=== PATIENT | male | born 1970 | race African-American/Black ===

== ENCOUNTER 2019-06-17 11:23 | Inpatient (IN) | payer OTHER ==
[2019-06-17 13:26] LABS: Urine Blood NEGATIVE (NEG); Urine Glucose NEGATIVE (NEG); Urine Protein NEGATIVE (NEG); Urine Specific Gravity 1.025 (1.005-1.030)
[2019-06-17] MEDS ORDERED: MORPHINE 4 MG/ML SYR ONE (13:51)
[2019-06-17] MEDS ORDERED: ONDANSETRON 4 MG/2 ML VIAL ONE (13:51)
[2019-06-17] MEDS ORDERED: CIPROFLOXACIN 400mg IV 400 MG/200 ML BAG IV ONE (13:52)
[2019-06-17] MEDS ORDERED: NA CHLORIDE 0.9% 1,000 ML ONE (13:52)
[2019-06-17] MEDS ORDERED: METRONIDAZOLE 500mg IVPB 500 MG/100 ML BAG IV ONE (13:52)
[2019-06-17] MEDS ORDERED: CEFTRIAXONE/SWI 1gm 1 GM/10 ML SYR ONE (13:52)
[2019-06-17 14:33] LABS: Absolute Lymphocytes (CBC) 1.3 K/uL (0.7-4.9); Basophils % 0.5 % (0-1.3); Hematocrit 41.1 % (39.6-49.0); Lymphocytes % 9.6 % (15.3-44.8); RBC Red Blood Cell Count 4.73 M/uL (4.33-5.43)
[2019-06-17 14:38] LABS: Potassium 3.9 mmol/L (3.5-5.1)
--- NOTE | 2019-06-17 14:51 | ER ---
Nurse's Notes [facility] Name: Corry Tapia Age: 48 yrs Sex: Male : 1970 Arrival Date: 06/17/2019 Time: 11:26 Bed 5 Private MD: None, None Diagnosis: Colitis Presentation: 06/17 11:38 Presenting complaint: Patient states: severe L flank pain that began 2 days ago, ss radiates towards LLQ with nausea. Sent from [place] for further evaluation. Transition of care: patient was not received from another setting of care. Onset of symptoms was June 15, 2019. Risk Assessment: Do you want to hurt yourself or someone else? Patient reports no desire to harm self or others. Initial Sepsis Screen: Does the patient meet any 2 criteria? No. Patient's initial sepsis screen is negative. Does the patient have a suspected source of infection? No. Patient's initial sepsis screen is negative. Care prior to arrival: None. 11:38 Method Of Arrival: Ambulatory 11:38 Acuity: MAT 3 ss Historical: - Allergies: 11:40 No Known Allergies; ss - Home Meds: 11:40 None [Active]; ss - PMHx: 11:42 Kidney stones; ss - PSHx: 11:40 None; ss - Immunization history:: Adult Immunizations up to date. - Social history:: Smoking status: Patient/guardian denies using tobacco. - Ebola Screening: : Patient denies exposure to infectious person Patient denies travel to an Ebola-affected area in the 21 days before illness onset. Screenin:00 Abuse screen: Denies threats or abuse. Denies injuries from another. Nutritional jl7 screening: No deficits noted. Tuberculosis screening: No symptoms or risk factors identified. Fall Risk IV access (20 points). Total Harrison Fall Scale indicates No Risk (0-24 pts). Assessment: 13:00 General: Appears in no apparent distress. uncomfortable, ill, Behavior is calm, jl7 cooperative, appropriate for age. Pain: Complains of pain in left upper quadrant Pain radiates to left lower quadrant Pain currently is 8 out of 10 on a pain scale. Quality of pain is described as sharp, Pain began 1 day ago. Is intermittent. Neuro: Level of Consciousness is awake, alert, obeys commands, Oriented to person, place, time, situation. Cardiovascular: Patient's skin is warm and dry. Respiratory: Airway is patent Respiratory effort is even, unlabored, Respiratory pattern is regular, symmetrical. GI: Abdomen is flat, non-distended, Stools are reported to be diarrhea. Last BM at 04:00. Bowel sounds present X 4 quads. Abd is soft X 4 quads Abdomen is tender to palpation in left upper quadrant and left lower quadrant Reports diarrhea, nausea. : No signs and/or symptoms were reported regarding the genitourinary system. EENT: No signs and/or symptoms were reported regarding the EENT system. Derm: Skin is pink, warm \T\ dry. Musculoskeletal: No signs and/or symptoms reported regarding the musculoskeletal system. 14:00 Reassessment: Patient appears in no apparent distress at this time. No changes from jl7 previously documented assessment. Patient and/or family updated on plan of care and expected duration. Pain level reassessed. Patient is alert, oriented x 3, equal unlabored respirations, skin warm/dry/pink. 14:30 Reassessment: Pt reports decreased pain, rated 4/10 at this time. jl7 15:30 Reassessment: Patient appears in no apparent distress at this time. Patient and/or jl7 family updated on plan of care and expected duration. Pain level reassessed. Patient is alert, oriented x 3, equal unlabored respirations, skin warm/dry/pink. 16:10 Reassessment: Pt requesting pain meds, reports pain rated 8/10, Dr. Hardwick gave VO for 2 jl7 mg Morphine x 1. 17:00 Reassessment: Patient appears in no apparent distress at this time. Patient and/or jl7 family updated on plan of care and expected duration. Pain level reassessed. Patient is alert, oriented x 3, equal unlabored respirations, skin warm/dry/pink. Patient states symptoms have improved. Vital Signs: 11:40 BP 153 / 67; Pulse 82; Resp 16; Temp 98.7(TE); Pulse Ox 98% on R/A; Weight 95.25 kg; ss Height 5 ft. 10 in. (177.80 cm); Pain 6/10; 14:28 BP 137 / 70; Pulse 81; Resp 16 S; Pulse Ox 98% on R/A; Pain 4/10; jl7 16:00 BP 136 / 86; Pulse 77; Resp 16 S; Pulse Ox 99% on R/A; jl7 16:37 BP 129 / 73; Pulse 99; Resp 16 S; Pulse Ox 99% on R/A; jl7 17:50 BP 130 / 68; Pulse 79; Resp 16 S; Pulse Ox 100% on R/A; jl7 11:40 Body Mass Index 30.13 (95.25 kg, 177.80 cm) ED Course: 11:26 Patient arrived in ED. ag5 11:26 None, None is Private Physician. ag5 11:39 Triage completed. ss 11:40 Arm band placed on right wrist. ss 11:44 Magi Durham, KAREL is PHCP. kb 11:44 Ankush Rodriguez MD is Attending Physician. kb 12:01 CT Stone Protocol In Process Unspecified. EDMS 13:06 Oralia Meehan RN is Primary Nurse. jl7 13:21 Urine collected: clean catch specimen, clear. dh3 14:00 Patient has correct armband on for positive identification. Placed in gown. Bed in low jl7 position. Call light in reach. Side rails up X 1. Pulse ox on. NIBP on. Warm blanket given. 14:01 Initial lab(s) drawn, by nm, sent to lab. First set of blood cultures drawn by me. dh3 Inserted saline lock: 20 gauge in left Blood collected. 14:14 EKG done, by radar technician. reviewed by Ankush Rodriguez MD. 3 14:16 Second set of blood cultures drawn by nm. 3 14:50 Alma Delia Hardwick MD is Hospitalizing Provider. kb Administered Medications: 14:00 Drug: NS 0.9% 1000 ml Route: IV; Rate: 1000 ml; Site: left antecubital; jl7 15:00 Follow up: Response: No adverse reaction; IV Status: Completed infusion; IV Intake: jl7 1000ml 14:00 Drug: Flagyl 500 mg Volume: 100 ml; Route: IVPB; Rate: 200 ml/hr; Infused Over: 30 jl7 mins; Site: left antecubital; 14:30 Follow up: Response: No adverse reaction; IV Status: Completed infusion jl7 14:00 Drug: Rocephin 1 grams Route: IV; Rate: calculated rate; Site: left antecubital; jl7 14:03 Follow up: Response: No adverse reaction; IV Status: Completed infusion 7 14:03 Drug: Zofran 4 mg Route: IVP; Site: left antecubital; jl7 16:06 Follow up: Response: No adverse reaction 7 14:05 Drug: morphine 4 mg Route: IVP; Site: left antecubital; jl7 14:30 Follow up: Response: No adverse reaction; Pain is decreased jl7 14:27 Drug: Ciprofloxacin 400 mg Volume: 200 ml; Route: IVPB; Infused Over: 60 mins; Site: jl7 left antecubital; 15:30 Follow up: Response: No adverse reaction; IV Status: Completed infusion 7 Intake: 15:00 IV: 1000ml; Total: 1000ml. jl7 Outcome: 14:50 Decision to Hospitalize by Provider. kb 18:37 Patient left the ED. jl7 Signatures: Dispatcher [employer] EDMS Magi Durham, JIN-Kelsea LOOM STOP CHECKER-Dorys Chanel RN RN ss Leal, Jahala, RN RN jl7 Allison King 3 Alcira Herring 3 Zackery Herrera 5 Corrections: (The following items were deleted from the chart) 11:42 11:40 PMHx: None; oanh 17:51 17:51 Response: No adverse reaction; IV Status: Completed infusion; IV Intake: 1000ml jl7 jl7
--- NOTE | 2019-06-17 14:51 | EDPHYS ---
Physician Documentation [facility] Name: Corry Tapia Age: 48 yrs Sex: Male : 1970 Arrival Date: 06/17/2019 Time: 11:26 Bed 5 Private MD: None, None ED Physician Ankush Rodriguez HPI: 06/17 13:43 This 48 yrs old Black Male presents to ER via Ambulatory with complaints of Pain In kb Left Side. 13:48 The patient presents with abdominal pain in the left lower quadrant. kb 14:28 Onset: The symptoms/episode began/occurred 3 day(s) ago. The symptoms do not radiate. kb Associated signs and symptoms: Pertinent positives: nausea and vomiting. The symptoms are described as constant. Modifying factors: The symptoms are alleviated by nothing, the symptoms are aggravated by nothing. Severity of pain: At its worst the pain was moderate in the emergency department the pain is unchanged. The patient has not experienced similar symptoms in the past. The patient has not recently seen a physician. 14:30 Pt reports LLQ pain that started on Thursday. Pain continues, now has nausea and kb vomiting as well. . Historical: - Allergies: 11:40 No Known Allergies; ss - Home Meds: 11:40 None [Active]; ss - PMHx: 11:42 Kidney stones; ss - PSHx: 11:40 None; ss - Immunization history:: Adult Immunizations up to date. - Social history:: Smoking status: Patient/guardian denies using tobacco. - Ebola Screening: : Patient denies exposure to infectious person Patient denies travel to an Ebola-affected area in the 21 days before illness onset. ROS: 13:41 Constitutional: Negative for fever, chills, and weight loss, ENT: Negative for injury, kb pain, and discharge, Neck: Negative for injury, pain, and swelling, Cardiovascular: Negative for chest pain, palpitations, and edema, Respiratory: Negative for shortness of breath, cough, wheezing, and pleuritic chest pain, Back: Negative for injury and pain, MS/Extremity: Negative for injury and deformity, Skin: Negative for injury, rash, and discoloration, Neuro: Negative for headache, weakness, numbness, tingling, and seizure. 13:41 Abdomen/GI: Positive for abdominal pain, nausea and vomiting, Negative for diarrhea, constipation, abdominal cramps, abdominal distension, anorexia. Exam: 13:42 Constitutional: This is a well developed, well nourished patient who is awake, alert, kb and in no acute distress. Head/Face: Normocephalic, atraumatic. ENT: Nares patent. No nasal discharge, no septal abnormalities noted. Tympanic membranes are normal and external auditory canals are clear. Oropharynx with no redness, swelling, or masses, exudates, or evidence of obstruction, uvula midline. Mucous membranes moist. Neck: Trachea midline, no thyromegaly or masses palpated, and no cervical lymphadenopathy. Supple, full range of motion without nuchal rigidity, or vertebral point tenderness. No Meningismus. Chest/axilla: Normal chest wall appearance and motion. Nontender with no deformity. No lesions are appreciated. Cardiovascular: Regular rate and rhythm with a normal S1 and S2. No gallops, murmurs, or rubs. Normal PMI, no JVD. No pulse deficits. Respiratory: Lungs have equal breath sounds bilaterally, clear to auscultation and percussion. No rales, rhonchi or wheezes noted. No increased work of breathing, no retractions or nasal flaring. Back: No spinal tenderness. No costovertebral tenderness. Full range of motion. Skin: Warm, dry with normal turgor. Normal color with no rashes, no lesions, and no evidence of cellulitis. MS/ Extremity: Pulses equal, no cyanosis. Neurovascular intact. Full, normal range of motion. Neuro: Awake and alert, GCS 15, oriented to person, place, time, and situation. Cranial nerves II-XII grossly intact. Motor strength 5/5 in all extremities. Sensory grossly intact. Cerebellar exam normal. Normal gait. 13:42 Abdomen/GI: Inspection: abdomen appears normal, Bowel sounds: normal, in all quadrants, Palpation: soft, in all quadrants, moderate abdominal tenderness, in the left lower quadrant. Vital Signs: 11:40 BP 153 / 67; Pulse 82; Resp 16; Temp 98.7(TE); Pulse Ox 98% on R/A; Weight 95.25 kg; ss Height 5 ft. 10 in. (177.80 cm); Pain 6/10; 14:28 BP 137 / 70; Pulse 81; Resp 16 S; Pulse Ox 98% on R/A; Pain 4/10; jl7 16:00 BP 136 / 86; Pulse 77; Resp 16 S; Pulse Ox 99% on R/A; jl7 16:37 BP 129 / 73; Pulse 99; Resp 16 S; Pulse Ox 99% on R/A; jl7 17:50 BP 130 / 68; Pulse 79; Resp 16 S; Pulse Ox 100% on R/A; jl7 11:40 Body Mass Index 30.13 (95.25 kg, 177.80 cm) MDM: 13:02 Patient medically screened. kb 13:42 Data reviewed: vital signs, nurses notes. Data interpreted: Pulse oximetry: on room air kb is 98 %. Interpretation: normal. Counseling: I had a detailed discussion with the patient and/or guardian regarding: the historical points, exam findings, and any diagnostic results supporting the discharge/admit diagnosis, lab results, radiology results, the need for further work-up and treatment in the hospital. 06/17 13:21 Order name: Urine Dipstick--Ancillary (enter results); Complete Time: 13:26 dh3 06/17 13:28 Order name: Basic Metabolic Panel; Complete Time: 14:39 kb 06/17 13:28 Order name: CBC with Diff; Complete Time: 14:36 kb 06/17 13:28 Order name: Lactate; Complete Time: 14:45 kb 06/17 13:28 Order name: Procalcitonin; Complete Time: 15:24 kb 06/17 13:28 Order name: Blood Culture Adult (2) 06/17 11:42 Order name: CT Stone Protocol 06/17 13:28 Order name: IV Saline Lock; Complete Time: 14:09 kb 06/17 13:28 Order name: Labs collected and sent; Complete Time: 14:09 kb Administered Medications: 14:00 Drug: NS 0.9% 1000 ml Route: IV; Rate: 1000 ml; Site: left antecubital; jl7 15:00 Follow up: Response: No adverse reaction; IV Status: Completed infusion; IV Intake: jl7 1000ml 14:00 Drug: Flagyl 500 mg Volume: 100 ml; Route: IVPB; Rate: 200 ml/hr; Infused Over: 30 jl7 mins; Site: left antecubital; 14:30 Follow up: Response: No adverse reaction; IV Status: Completed infusion jl7 14:00 Drug: Rocephin 1 grams Route: IV; Rate: calculated rate; Site: left antecubital; jl7 14:03 Follow up: Response: No adverse reaction; IV Status: Completed infusion jl7 14:03 Drug: Zofran 4 mg Route: IVP; Site: left antecubital; jl7 16:06 Follow up: Response: No adverse reaction jl7 14:05 Drug: morphine 4 mg Route: IVP; Site: left antecubital; jl7 14:30 Follow up: Response: No adverse reaction; Pain is decreased jl7 14:27 Drug: Ciprofloxacin 400 mg Volume: 200 ml; Route: IVPB; Infused Over: 60 mins; Site: [facility] left antecubital; 15:30 Follow up: Response: No adverse reaction; IV Status: Completed infusion jl7 Disposition: 06/17/19 14:50 Hospitalization ordered by Alma Delia Hardwick for Inpatient Admission. Preliminary diagnosis is Colitis. - Bed requested for Telemetry/MedSurg (Inpatient). - Status is Inpatient Admission. jl7 - Condition is Stable. - Problem is new. - Symptoms are unchanged. UTI on Admission? No Addendum: 06/19/2019 07:51 Co-signature as Attending Physician, Ankush Rodriguez MD I agree with the assessment and c lerma plan of care. Signatures: Dispatcher [employer] EDMagi Miller, SUPERVISING FIRE MARSHAL-C SUPERVISING FIRE MARSHAL-Ckb Ankush Rodriguez MD MD cha Calderon, Audri, RN RN aa5 Dorys Carreon RN RN ss Leal, Jahala, RN RN jl7 Corrections: (The following items were deleted from the chart) 06/17 11:42 11:40 PMHx: None; ss 14:52 14:50 Hospitalization Ordered by Alma Delia Hardwick MD for Inpatient Admission. Preliminary kb diagnosis is Colitis. Bed requested for Telemetry/MedSurg (Inpatient). Status is Inpatient Admission. Condition is Stable. Problem is new. Symptoms are unchanged. UTI on Admission? No. kb 17:44 14:52 06/17/2019 14:50 Hospitalization Ordered by Alma Delia Hardwick MD for Inpatient aa5 Admission. Preliminary diagnosis is Colitis. Bed requested for Telemetry/MedSurg (Inpatient). Status is Inpatient Admission. Condition is Stable. Problem is new. Symptoms are unchanged. UTI on Admission? No. kb 18:37 17:44 06/17/2019 14:50 Hospitalization Ordered by Alma Delia Hardwick MD for Inpatient jl7 Admission. Preliminary diagnosis is Colitis. Bed requested for Telemetry/MedSurg (Inpatient). Status is Inpatient Admission. Condition is Stable. Problem is new. Symptoms are unchanged. UTI on Admission? No. aa5
[2019-06-17 15:43] VITALS: BMI 30.1
[2019-06-17] MEDS ORDERED: MORPHINE 2 MG/ML SYR ONE (16:09)
[2019-06-17] MEDS: METRONIDAZOLE 500mg IVPB 500 MG/100 ML BAG IV SCH (18:18)
[2019-06-17] MEDS ORDERED: ONDANSETRON 4 MG/2 ML VIAL IV PRN (18:18)
[2019-06-17] MEDS: NA CHLORIDE 0.9% 1,000 ML IV SCH (18:18)
--- NOTE | 2019-06-17 18:45 | P.HP ---
Certification for Inpatient Patient admitted to: Inpatient With expected LOS: >2 Midnights Practitioner: I am a practitioner with admitting privileges, knowledge of patient current condition, hospital course, and medical plan of care. Services: Services provided to patient in accordance with Admission requirements found in Title 42 Section 412.3 of the Code of Federal Regulations Patient History Date of Service: 06/17/19 Reason for admission: Abdominal pain History of Present Illness: This is a 48-year-old male with no past medical history, previously pretty healthy who presented to them room with abdominal pain. Per patient, starting Thursday he has been having progressively worsening left lower quadrant pain is radiating down to the groin area. Describes it as sharp, /10 at its worst. Associated with nausea, watery nonbloody diarrhea. He states he has more than 5 watery stools a day, last bowel movement was at 4 o'clock this morning. The pain was not improving, in fact was getting worse therefore he came to the emergency room. In the ER, he was hemodynamically stable. Labs were remarkable for WBC count elevated at 13.3, otherwise unremarkable. CT scan of the abdomen showed colitis with microscopic perforations. In the ER, he received antibiotics along with IV fluids and supportive care with pain medications. At the time of my exam, patient is alert oriented x3, in mild to moderate distress but hemodynamically stable. Allergies No Known Drug Allergies Allergy (Unverified 01/13/18 12:53) Unknown Home medications list reviewed: Yes Home Medications: NK [No Home Meds] 06/17/19 - Past Medical/Surgical History Has patient received pneumonia vaccine in the past: No Diabetic: No -: kidney stones -: right knee cartilage surgery - Family History Mother -: Hypertension, Diabetes Father History Unknown: Yes - Social History Smoking Status: Never smoker Alcohol use: No CD- Drugs: No Caffeine use: No Place of Residence: Home Review of Systems 10-point ROS is otherwise unremarkable Physical Examination - Physical Exam General: Alert, Oriented x3, Moderate distress HEENT: Atraumatic, PERRLA, Mucous membr. moist/pink, EOMI, Sclerae nonicteric Neck: Supple, 2+ carotid pulse no bruit, No LAD, Without JVD or thyroid abnormality Respiratory: Clear to auscultation bilaterally, Normal air movement Cardiovascular: Regular rate/rhythm, Normal S1 S2 Gastrointestinal: Normal bowel sounds, Tenderness Musculoskeletal: No tenderness Integumentary: No rashes Neurological: Normal gait, Normal speech, Normal strength at 5/5 x4 extr, Normal tone, Normal affect Lymphatics: No axilla or inguinal lymphadenopathy - Studies Laboratory Data (last 24 hrs) 06/17/19 14:01: WBC 13.3 H, Hgb 13.9, Hct 41.1, Plt Count 237 06/17/19 14:01: Sodium 140, Potassium 3.9, BUN 11, Creatinine 1.40 H, Glucose 100 Assessment and Plan - Plan Colitis, with microscopic perforation Keep NPO IV antibiotics with ciprofloxacin and Flagyl Pain control Monitor vital signs and labs Obesity DVT prophylaxis: Lovenox GI prophylaxis: None Diet: NPO Disposition: Pending symptomatic improvement - Advance Directives Does patient have a Living Will: No Does patient have a Durable POA for Healthcare: No
[2019-06-17] MEDS ORDERED: INFLUENZA VACCINE (for 3y+) 0.5 ML DOSE IMVAC ONE (21:00)
[2019-06-17] MEDS: CIPROFLOXACIN 400mg IV 400 MG/200 ML BAG IV SCH (21:10)
[2019-06-17] MEDS: MORPHINE 4 MG/ML SYR IV PRN (21:11)
[2019-06-18] MEDS: METRONIDAZOLE 500mg IVPB 500 MG/100 ML BAG IV SCH ×4 (01:08→17:28)
[2019-06-18] MEDS: MORPHINE 4 MG/ML SYR IV PRN ×5 (02:10→21:22)
[2019-06-18] MEDS: NA CHLORIDE 0.9% 1,000 ML IV SCH ×3 (04:18→21:25)
[2019-06-18 06:53] LABS: Absolute Lymphocytes (CBC) 1.8 K/uL (0.7-4.9); Basophils % 0.5 % (0-1.3); Lymphocytes % 13.5 % (15.3-44.8); MPV 8.8 fL (7.6-11.3); RBC Red Blood Cell Count 4.19 M/uL (4.33-5.43)
[2019-06-18 06:55] LABS: Albumin 2.9 g/dL (3.4-5.0); Bilirubin Total 0.8 mg/dL (0.2-1.0); Magnesium 2.1 mg/dL (1.8-2.4); Phosphorus 2.2 mg/dL (2.5-4.9); Potassium 3.8 mmol/L (3.5-5.1); Protein, Total 6.9 g/dL (6.4-8.2)
[2019-06-18] MEDS ORDERED: KCL 20 MEQ/100 mL IVPB 20 MEQ/100 ML BAG IV SCH (08:00)
[2019-06-18] MEDS: CIPROFLOXACIN 400mg IV 400 MG/200 ML BAG IV SCH ×2 (08:11→21:22)
--- NOTE | 2019-06-18 12:07 | RAD REPORT ---
EXAM DESCRIPTION: CT - Stone Protocol - 06/17/2019 7:17 pm CLINICAL HISTORY: Abdominal pain, flank pain COMPARISON: CT imaging November 2014 TECHNIQUE: Axial 5 mm thick images were obtained without oral or IV contrast. The [id number] span s the entirety of the system including uppermost abdomen and lung bases. All CT scans are performed using dose optimization technique as appropriate and may include automated exposure control or mA/KV adjustment according to patient size. FINDINGS: No hydronephrosis is present and no obstructing ureteral calculi. The patient has bilatera l 3-7 mm sized nonobstructing calyx calculi. Trace stranding is present in the perinephric fat, symme tric pattern. No suspicious renal masses. Isodense masses and pyelonephritis are not excluded on a st one protocol CT scan. No urinary bladder suspicious finding. No significant adrenal finding. Prostate gland is mildly prominent does not appear to invade any adjacent structure. The liver is prominent in size but without focal abnormality on noncontrast imaging. Spleen and pancr eas show no suspicious findings. No gallbladder or biliary tree abnormality identified. No gastric dilatation or gastric wall thickening. No small bowel abnormality. No appendicitis finding s. From the cecum through the descending colon no acute findings seen. No rectum or distal sigmoid co taryn acute finding. Proximal sigmoid colon shows circumferential wall thickening with nonobstructive luminal narrowing. T here is stranding along the mesenteric margin and several small air collections immediately adjacent to the colon. No abscess seen. No distant free air and no free fluid. No diverticulosis evident. No mass or bulky lymphadenopathy. No omental thickening. A fat only umbilical hernia is stable. No acute bone finding. L5 pars defects are present without L5 subluxation. A 50-60% T10 wedge teresa julissa fracture deformity is stable from 2015. IMPRESSION: Abnormal proximal sigmoid colon showing circumferential wall thickening, inflammatory st randing and micro perforation changes with small air densities in the mesenteric fat immediately tameka cent to the involved colon. No abscess, distend free air or free fluid. Patient has no clearly definable diverticulosis pattern s o colitis is favored over diverticulitis. A colon mass cannot be excluded and follow-up colonoscopy i s needed after medical management. Nonacute findings detailed in the body of the report. Note: Due to extended technical problems with the PACs/reporting systems, final written report was de layed. Verbal report was telephoned to the referring clinician at the time of the study. Isodense masses and pyelonephritis are not excluded on stone protocol technique.
--- NOTE | 2019-06-18 12:09 | P.PN ---
Subjective Date of Service: 06/18/19 Chief Complaint: Abdominal pain Subjective: Improving Patient seen and examined at bedside. No family at bedside. Chart reviewed and case discussed with nursing staff. Reports improved abdominal pain. Like to try some clear liquids. No acute events noted overnight. Review of Systems 10-point ROS is otherwise unremarkable Physical Examination - Vital Signs Temperature: 98.3 F Blood Pressure: 118/66 Pulse: 66 Respirations: 16 Pulse Ox (%): 92 - Physical Exam General: Alert, In no apparent distress HEENT: Atraumatic, PERRLA, EOMI Neck: Supple, JVD not distended Respiratory: Clear to auscultation bilaterally, Normal air movement Cardiovascular: Regular rate/rhythm, Normal S1 S2 Gastrointestinal: Normal bowel sounds, No tenderness Musculoskeletal: No tenderness Integumentary: No rashes Neurological: Normal speech, Normal tone, Normal affect Lymphatics: No axilla or inguinal lymphadenopathy - Studies Laboratory Data (last 24 hrs) 06/17/19 14:01: WBC 13.3 H, Hgb 13.9, Hct 41.1, Plt Count 237 06/17/19 14:01: Sodium 140, Potassium 3.9, BUN 11, Creatinine 1.40 H, Glucose 100 Assessment And Plan - Plan Colitis, with microscopic perforation Start clear liquid diet, advance as tolerated IV antibiotics with ciprofloxacin and Flagyl Pain control Monitor vital signs and labs Obesity DVT prophylaxis: Lovenox GI prophylaxis: None Diet: Clear liquid diet Disposition: Pending symptomatic improvement. Anticipate discharge once tolerating GI soft diet, possibly tomorrow
[2019-06-19] MEDS: METRONIDAZOLE 500mg IVPB 500 MG/100 ML BAG IV SCH ×5 (00:54→23:52)
[2019-06-19] MEDS: NA CHLORIDE 0.9% 1,000 ML IV SCH ×3 (00:54→23:52)
[2019-06-19] MEDS: MORPHINE 4 MG/ML SYR IV PRN ×5 (00:55→20:53)
--- NOTE | 2019-06-19 06:20 | EKG ---
Test Date: 2019-06-17 Test Time: 13:35:49 [employer] Supervisor: CHUCKY MEASUREMENT RESULTS: Intervals: Rate: 74 UT: 144 QRSD: 82 QT: 342 QTc: 379 [place]: P: 78 UT: 144 QRS: 69 T: 16 INTERPRETIVE STATEMENTS: Normal sinus rhythm normal ECG Compared to ECG 10/30/2000 20:17:00 no significant change from previous ECG Electronically Signed On 06-19-19 06:20:09 CDT by Albaro Omer
[2019-06-19 06:57] LABS: Absolute Lymphocytes (CBC) 1.4 K/uL (0.7-4.9); Basophils % 1.2 % (0-1.3); Lymphocytes % 18.2 % (15.3-44.8); RBC Red Blood Cell Count 4.17 M/uL (4.33-5.43)
[2019-06-19 07:11] LABS: Albumin 2.7 g/dL (3.4-5.0); Bilirubin Total 0.6 mg/dL (0.2-1.0); Potassium 3.8 mmol/L (3.5-5.1); Protein, Total 6.8 g/dL (6.4-8.2)
[2019-06-19] MEDS: CIPROFLOXACIN 400mg IV 400 MG/200 ML BAG IV SCH ×2 (08:52→20:47)
[2019-06-19] MEDS ORDERED: POTASSIUM CL SA 10 MEQ TAB PO ONE (12:00)
--- NOTE | 2019-06-19 14:33 | P.PN ---
Subjective Date of Service: 06/19/19 Chief Complaint: Abdominal pain Subjective: Improving Patient seen and examined at bedside. No family at bedside. Chart reviewed and case discussed with nursing staff. Reports improved abdominal pain. Tolerating PO, CLD. No acute events noted overnight. Reports leg cramps this am. He has not gotten out of bed or ambulated. Review of Systems 10-point ROS is otherwise unremarkable Physical Examination - Vital Signs Temperature: 98.3 F Blood Pressure: 132/74 Pulse: 64 Respirations: 16 Pulse Ox (%): 92 - Physical Exam General: Alert, In no apparent distress HEENT: Atraumatic, PERRLA, EOMI Neck: Supple, JVD not distended Respiratory: Clear to auscultation bilaterally, Normal air movement Cardiovascular: Regular rate/rhythm, Normal S1 S2 Gastrointestinal: Normal bowel sounds, No tenderness Musculoskeletal: No tenderness Integumentary: No rashes Neurological: Normal speech, Normal tone, Normal affect Lymphatics: No axilla or inguinal lymphadenopathy Assessment And Plan - Plan Colitis, with microscopic perforation Advance diet to GI soft IV antibiotics with ciprofloxacin and Flagyl Encourage ambulation Pain control Monitor vital signs and labs Obesity DVT prophylaxis: Lovenox GI prophylaxis: None Diet: Clear liquid diet Disposition: Pending symptomatic improvement. Anticipate discharge once tolerating GI soft diet, possibly tomorrow
[2019-06-20 04:18] LABS: Absolute Lymphocytes (CBC) 1.5 K/uL (0.7-4.9); Basophils % 0.5 % (0-1.3); Hematocrit 37.4 % (39.6-49.0); MPV 8.3 fL (7.6-11.3); RBC Red Blood Cell Count 4.36 M/uL (4.33-5.43)
[2019-06-20 04:39] LABS: Albumin 2.9 g/dL (3.4-5.0); Bilirubin Total 0.5 mg/dL (0.2-1.0); Protein, Total 6.9 g/dL (6.4-8.2)
[2019-06-20] MEDS: METRONIDAZOLE 500mg IVPB 500 MG/100 ML BAG IV SCH (05:11)
[2019-06-20] MEDS: NA CHLORIDE 0.9% 1,000 ML IV SCH (06:18)
[2019-06-20] MEDS: CIPROFLOXACIN 400mg IV 400 MG/200 ML BAG IV SCH (08:12)
[2019-06-20 08:21] VITALS: O2SAT 98
[2019-06-20 08:36] VITALS: BP 135/61; TEMP 97.8
[2019-06-20] MEDS ORDERED: MUPIROCIN 2% OINT 22GM TUBE TOP SCH (09:00)
--- NOTE | 2019-06-24 16:52 | P.DS ---
Admission Date: 06/17/19 Discharge Date: 06/20/19 Disposition: ROUTINE DISCHARGE Discharge Condition: GOOD Reason for Admission: Abdominal pain Brief History of Present Illness: This is a 48-year-old male with no past medical history, previously pretty healthy who presented to them room with abdominal pain. Per patient, starting Thursday he has been having progressively worsening left lower quadrant pain is radiating down to the groin area. Describes it as sharp, 10/10 at its worst. Associated with nausea, watery nonbloody diarrhea. He states he has more than 5 watery stools a day, last bowel movement was at 4 o'clock this morning. The pain was not improving, in fact was getting worse therefore he came to the emergency room. In the ER, he was hemodynamically stable. Labs were remarkable for WBC count elevated at 13.3, otherwise unremarkable. CT scan of the abdomen showed colitis with microscopic perforations. In the ER, he received antibiotics along with IV fluids and supportive care with pain medications. At the time of my exam, patient is alert oriented x3, in mild to moderate distress but hemodynamically stable. Hospital Course: Patient was admitted, kept NPO with IVF. Pain control was provided. His symptoms improved. he was started on a CLD, advanced as he could tolerate it. Prior to discharge, his symptoms had resolved, he was tolerating GI soft diet and he was HDS. he was ambulating without concerns. He will require outpatient follow up with GI for colonoscopy. his diagnosis/treatment plan was explained to him and family, all questions were answered and they verbalized understanding. He was then discharged home in a safe and stable manner. Vital Signs/Physical Exam: Temp Pulse Resp BP Pulse Ox 97.8 F 65 18 135/61 97 06/20/19 08:00 06/20/19 08:00 06/20/19 08:00 06/20/19 08:00 06/20/19 08:00 General: Alert, In no apparent distress, Oriented x3 HEENT: Atraumatic, PERRLA, EOMI Neck: Supple, JVD not distended Respiratory: Clear to auscultation bilaterally, Normal air movement Cardiovascular: Regular rate/rhythm, Normal S1 S2 Gastrointestinal: Normal bowel sounds, No tenderness Musculoskeletal: No tenderness Integumentary: No rashes Neurological: Normal speech, Normal tone, Normal affect Lymphatics: No axilla or inguinal lymphadenopathy Laboratory Data at Discharge: WBC 7.1 K/uL (4.3-10.9) 06/20/19 04:01 Hgb 12.9 g/dL (13.6-17.9) L 06/20/19 04:01 Hct 37.4 % (39.6-49.0) L 06/20/19 04:01 Plt Count 267 K/uL (152-406) 06/20/19 04:01 Sodium 139 mmol/L (136-145) 06/20/19 04:01 Potassium 4.0 mmol/L (3.5-5.1) 06/20/19 04:01 BUN 11 mg/dL (7-18) 06/20/19 04:01 Creatinine 1.22 mg/dL (0.55-1.3) 06/20/19 04:01 Glucose 93 mg/dL (74-106) 06/20/19 04:01 Phosphorus 2.2 mg/dL (2.5-4.9) L 06/18/19 06:24 Magnesium 2.1 mg/dL (1.8-2.4) 06/18/19 06:24 Total Bilirubin 0.5 mg/dL (0.2-1.0) 06/20/19 04:01 AST 17 U/L (15-37) 06/20/19 04:01 ALT 22 U/L (12-78) 06/20/19 04:01 Alkaline Phosphatase 50 U/L (45-117) 06/20/19 04:01 Home Medications: Ciprofloxacin HCl [Cipro 500 MG Tablet] 500 mg PO BID #22 tab 06/20/19 Tramadol HCl [Ultram] 50 mg PO Q6H #15 tablet 06/20/19 metroNIDAZOLE [Flagyl] 500 mg PO Q8H #33 tablet 06/20/19 New Medications: Ciprofloxacin HCl [Cipro 500 MG Tablet] 500 mg PO BID #22 tab metroNIDAZOLE [Flagyl] 500 mg PO Q8H #33 tablet Tramadol HCl [Ultram] 50 mg PO Q6H #15 tablet Patient Discharge Instructions: Please follow up with your primary care physician in 2-3 days. Follow up with a Obstetrician Gynecologist in a few weeks. Return to the ER for worsening symptoms Diet: Soft foods As tolerated Activity: Ad mark Followup: Adam Ortega MD [ASSOCIATE-ACTIVE - CAN ADMIT] - (call to schedule appointment) Time spent managing pt's care (in minutes): 55
== END 2019-06-20 13:15 | disposition home or self-care (01) | DRG 391 ==
LOC: ER 11:23 → ERHOLD 15:15 → 4TH 18:21
PROVIDERS: ADMIT Family Medicine; ATTEND Family Medicine
DX: K52.9 Noninfective gastroenteritis and colitis, unspecified (principal); K63.1 Perforation of intestine (nontraumatic); E66.9 Obesity, unspecified; Z68.30 Body mass index [BMI] 30.0-30.9, adult
CPT/HCPCS: 36415; 74176; 76377; 80048; 80053; 81003; 83605; 83735; 84100; 84145; 85025; 87040; 93005; 94760; 96365; 96368; 96375; 99284; J0696; J0744; J2270; J2405; J7030